=== PATIENT | female | born 1960 | race Caucasian/White ===

== ENCOUNTER 2017-02-28 13:34 | Outpatient (CLI) | payer MEDICAID | END 2017-02-28 13:35 | disposition home or self-care (01) | DX: Z12.31 Encounter for screening mammogram for malignant neoplasm of breast (principal) ==

== ENCOUNTER 2017-09-24 08:00 | Outpatient (CLI) | payer MEDICAID ==
[2017-09-24 12:40] LABS: BASOPHILS % (AUTO) 0.7 %; EOSINOPHILS # (AUTO) 0.2 10^3/uL (0.0-0.7); EOSINOPHILS % (AUTO) 3.7 %; HCT - HEMATOCRIT 38.1 % (37.0-47.0); HGB - HEMOGLOBIN 13.1 g/dL (12.0-16.0); LYMPHOCYTES # (AUTO) 1.9 10^3/uL (1.5-3.5); LYMPHOCYTES % (AUTO) 31.8 %; MEAN CORPUSCULAR HEMOGLOBIN 32.1 pg (27.0-31.0); MEAN CORPUSCULAR HGB CONC 34.3 g/dL (32.0-36.0); MEAN CORPUSCULAR VOLUME 93.6 fL (81.0-99.0); MEAN PLATELET VOLUME 7.8 fL (7.9-10.8); MONOCYTES # (AUTO) 0.4 10^3/uL (0.0-1.0); MONOCYTES % (AUTO) 7.2 %; NEUTROPHILS # (AUTO) 3.4 10^3/uL (1.5-6.6); NEUTROPHILS % (AUTO) 56.6 %; RED BLOOD COUNT 4.07 10^6/uL (4.20-5.40); RED CELL DISTRIBUTION WIDTH 13.5 % (12.0-15.0)
[2017-09-24 12:57] LABS: ALBUMIN/GLOBULIN RATIO 1.1 (1.0-2.2); BILIRUBIN,TOTAL 0.5 mg/dL (0.2-1.0); BUN - BLOOD UREA NITROGEN 12 mg/dL (6-20); CALCIUM 8.9 mg/dL (8.5-10.3); CARBON DIOXIDE - CO2 28 mmol/L (21-32); CHLORIDE 102 mmol/L (101-111); CHOL/HDL RATIO 3.3 (<4.4); CHOLESTEROL 229 mg/dL; CREATININE 0.8 mg/dL (0.4-1.0); GFR - MDRD 74 (>89); GLUCOSE 114 mg/dL (70-100); HDL CHOLESTEROL 69 mg/dL; POTASSIUM 4.1 mmol/L (3.5-5.0); SODIUM 137 mmol/L (135-145); TOTAL PROTEIN 7.5 g/dL (6.7-8.2); TRIGLYCERIDES 113 mg/dL; VLDL CHOLESTEROL 23 mg/dL
== END 2017-09-24 08:01 | disposition home or self-care (01) ==
LOC: LAB.WCP 08:00
PROVIDERS: ATTEND Family Medicine
DX: Z00.00 Encounter for general adult medical examination without abnormal findings (principal); Z51.81 Encounter for therapeutic drug level monitoring; Z79.899 Other long term (current) drug therapy
CPT/HCPCS: 36415; 80053; 80061; 84443; 85025

== ENCOUNTER 2018-02-26 16:14 | Outpatient (CLI) | payer MEDICAID ==
--- NOTE | 2018-02-28 17:26 | Mammography Report ---
DIGITAL SCREENING MAMMOGRAM: 02/26/2018 CLINICAL INDICATION: A 57-year-old with history of benign right breast biopsy for screening. COMPARISON: 02/2017, 02/2016, 12/2014, 11/2013, 05/2012, 02/2011, 12/2009. TECHNIQUE: Routine CC and MLO projections were obtained of the breasts. FINDINGS: The breasts again demonstrate scattered fibroglandular densities bilaterally. Postbiopsy changes in the right upper outer quadrant are stable. A few punctate, typically benign calcifications are present. No suspicious masses, clustered microcalcifications, or regions of architectural distortion are identified. IMPRESSION: BENIGN FINDINGS. RECOMMENDATION: Routine annual screening unless otherwise clinically indicated. BIRADS category 2 benign findings. STANDARD QUALIFYING STATEMENTS 1. This examination was reviewed with the aid of Computed-Aided Detection (CAD). 2. A negative or benign imaging report should not delay biopsy if clinically suspicious findings are present. Consider surgical consultation if warranted. More than 5% of cancers are not identified by imaging. 3. Dense breasts may obscure an underlying neoplasm. TD: 02/28/2018 17:25
== END 2018-02-26 16:15 | disposition home or self-care (01) ==
LOC: DI.N 16:14
PROVIDERS: ATTEND Family Medicine
DX: Z12.31 Encounter for screening mammogram for malignant neoplasm of breast (principal)
CPT/HCPCS: 77067

== ENCOUNTER 2018-03-25 08:00 | Outpatient (CLI) | payer MEDICAID ==
[2018-03-25 19:31] LABS: ALBUMIN 3.8 g/dL (3.2-5.5); ALBUMIN/GLOBULIN RATIO 1.1 (1.0-2.2); BILIRUBIN,TOTAL 0.3 mg/dL (0.2-1.0); CALCIUM 9.3 mg/dL (8.5-10.3); CREATININE 0.8 mg/dL (0.4-1.0); TOTAL PROTEIN 7.4 g/dL (6.7-8.2)
[2018-03-25 20:16] LABS: HB2 TOTAL 13.7 g/dL; HEMOGLOBIN A1C 0.57 g/dL
== END 2018-03-25 08:01 ==
LOC: LAB.WCP 08:00
PROVIDERS: ATTEND Family Medicine
DX: R73.01 Impaired fasting glucose (principal)
CPT/HCPCS: 36415; 80053; 83036

== ENCOUNTER 2018-10-06 18:39 | Outpatient (CLI) | payer MEDICAID ==
--- NOTE | 2018-10-07 09:13 | XRAY Report ---
Reason: KNEE PAIN, RIGHT Procedure Date: 10/06/2018 Accession Number: [id number] / [id number] Procedure: XR - Knee 3 View RT CPT Code: FULL RESULT: EXAM: RIGHT KNEE RADIOGRAPHY EXAM DATE: 10/06/2018 06:56 PM. CLINICAL HISTORY: KNEE PAIN, RIGHT. COMPARISON: None. TECHNIQUE: 3 views. FINDINGS: Bones: Normal. No fractures or bone lesions. Joints: Mild medial and lateral and minimal patellofemoral compartment marginal spurring. Substantial joint space narrowing is not demonstrated. No subluxation. Small joint effusion. Soft Tissues: Normal. No soft tissue swelling. IMPRESSION: 1. Mild degenerative disease. 2. Small joint effusion. RADIA
== END 2018-10-06 18:40 | disposition home or self-care (01) ==
LOC: DI 18:39
PROVIDERS: ATTEND Family Medicine
DX: M17.11 Unilateral primary osteoarthritis, right knee (principal); M25.461 Effusion, right knee

== ENCOUNTER 2019-08-19 13:30 | Outpatient (CLI) | payer MEDICAID ==
--- NOTE | 2019-08-19 14:19 | XRAY Report ---
Reason: UNSPECIFIED FALL Procedure Date: 08/19/2019 Accession Number: [id number] / [id number] Procedure: WCP - Ribs 2 View RT CPT Code: FULL RESULT: EXAM: RIGHT RIB RADIOGRAPHY EXAM DATE: 08/19/2019 01:52 PM. CLINICAL HISTORY: UNSPECIFIED FALL. COMPARISON: None. TECHNIQUE: 2 views. FINDINGS: Bones: Normal. No fracture or bone lesion. Lungs: No focal opacities evident. No pneumothorax or pleural effusions. Mediastinum: Heart and cardiomediastinal contours are unremarkable. Other: None. IMPRESSION: No displaced rib fracture is identified. RADIA
== END 2019-08-19 23:59 | disposition home or self-care (01) ==
LOC: DI.WCP 13:30
PROVIDERS: ATTEND Nurse Practitioner Gerontology
DX: R07.81 Pleurodynia (principal)

== ENCOUNTER 2019-09-11 13:33 | Outpatient (CLI) | payer MEDICAID ==
--- NOTE | 2019-09-14 08:43 | Mammography Report ---
Reason: ROUTINE MAMMO Procedure Date: 09/11/2019 Accession Number: [id number] / [id number] Procedure: MGN - Screening Mammo Dig Bilat CPT Code: Final Report FULL RESULT: EXAM: Screening Mammo Dig Bilat DATE: 09/11/2019 1:58 PM CLINICAL HISTORY: Routine screening. No reported personal or family history of breast cancer. History of benign right breast biopsy. TECHNIQUE: (B) - Bilateral CC and MLO views were obtained. COMPARISON: 02/26/2018 through 12/15/2009. PARENCHYMAL PATTERN: (A) - The breasts demonstrate scattered fibroglandular densities bilaterally. FINDINGS: Bilateral breasts: There are no suspicious masses, calcifications, or areas of distortion. IMPRESSION: Negative examination. BI-RADS category 1. RECOMMENDATION: (ANNUAL) - Recommend routine annual screening mammography. BI-RADS CATEGORY: (1) - Negative. STANDARD QUALIFYING STATEMENTS: 1. This examination was not reviewed with the aid of Computer-Aided Detection (CAD). 2. A negative or benign imaging report should not preclude biopsy if clinically suspicious findings are present. 3. Dense breasts may obscure an underlying neoplasm. 4. This examination was reviewed without the aid of 3D breast imaging (tomosynthesis).
== END 2019-09-11 13:34 | disposition home or self-care (01) ==
LOC: DI.N 13:33
DX: Z12.31 Encounter for screening mammogram for malignant neoplasm of breast (principal)
CPT/HCPCS: 77067

== ENCOUNTER 2019-10-27 21:59 | Emergency (ER) | payer MEDICAID ==
[2019-10-27 22:06] VITALS: BP 179/94
[2019-10-27] MEDS ORDERED: AMOX/CLAV 875 MG/125 MG TABLET PO STA (22:38)
[2019-10-27] MEDS ORDERED: predniSONE 20 MG TABLET PO STA (22:38)
--- NOTE | 2019-10-27 22:44 | ED Physician Documentation ---
PD HPI HEENT - Stated complaint Stated Complaint: CONGESTION,LEFT EAR PX - Chief complaint Chief Complaint: Heent - History obtained from History obtained from: Patient - History of Present Illness Timing - onset: Other (Sick for 4 weeks with a double sickening with now a severe right sinus pain and tooth pain radiating to the right ear and worse if she bends forward. Chills tonight without fevers.) Review of Systems Constitutional: reports: Chills. denies: Fever Nose: reports: Rhinorrhea / runny nose, Congestion, Sinus pressure / pain Throat: denies: Sore throat Respiratory: denies: Dyspnea, Cough PD PAST MEDICAL HISTORY - Past Medical History Past Medical History: Yes Cardiovascular: None Respiratory: None Neuro: None Endocrine/Autoimmune: None GI: None MOBILE PHONE SALESPERSON: None : None HEENT: None Psych: Depression Musculoskeletal: Osteoarthritis Derm: None - Past Surgical History Past Surgical History: Yes General: Other - Present Medications Home Medications: Ambulatory Orders Medication Instructions Recorded Confirmed Bupropion HCl [Bupropion Xl] 150 mg PO DAILY 12/17/13 01/09/16 FLUoxetine [PROzac] 10 mg PO DAILY 12/17/13 01/09/16 Loratadine [Claritin] 10 mg PO DAILY 01/09/16 01/09/16 Minocycline HCl [Minocin] 50 mg PO DAILY 01/09/16 01/09/16 Valacyclovir HCl [Valtrex] 500 mg PO DAILY 01/09/16 01/09/16 Amox/Clav 875/125 [Augmentin] 1 each PO Q12H #20 tablet 10/27/19 Guaifenesin/Pseudoephedrne HCl 1 each PO BID PRN #20 tab.er.12h 10/27/19 [Mucinex D ER 600-60 mg Tablet] Mometasone Furoate [Nasonex] 1 spray NS BID #1 spray.pump 10/27/19 - Allergies Allergies/Adverse Reactions: Allergies Allergy/AdvReac Type Severity Reaction Status Date / Time No Known Drug Allergies Allergy Verified 10/27/19 22:02 - Social History Does the pt smoke?: No Smoking Status: Never smoker Does the pt drink ETOH?: No Does the pt have substance abuse?: No - Immunizations Immunizations are current?: Yes - POLST Patient has POLST: No PD ED PE NORMAL - Vitals Vital signs reviewed: Yes - General General: Alert and oriented X 3, No acute distress - HEENT HEENT: Other (Tender over the left maxillary sinus, TMs are normal, oropharynx is normal.) - Neck Neck: Supple, no meningeal sign, No bony TTP - Neuro Neuro: Alert and oriented X 3, Normal speech Results - Vitals Vitals: Vital Signs - 24 hr 10/27/19 10/27/19 22:02 22:29 Temperature 36.8 C Heart Rate 95 Respiratory 16 17 Rate Blood Pressure 179/94 H O2 Saturation 98 Oxygen O2 Source Room air PD MEDICAL DECISION MAKING - ED course ED course: Given the time course, severe pain, chills and double sickening she does fit IDSA criteria for antibiotic treatment for sinusitis. Departure - Departure Disposition: Home, Self Care Clinical Impression: Sinusitis Qualifiers: Sinusitis location: maxillary Chronicity: acute Recurrence: non-recurrent Qualified Code(s): J01.00 - Acute maxillary sinusitis, unspecified Condition: Good Record reviewed to determine appropriate education?: Yes Instructions: ED Sinusitis Abx Tx Prescriptions: Amox/Clav 875/125 [Augmentin] 1 each PO Q12H #20 tablet Guaifenesin/Pseudoephedrne HCl [Mucinex D ER 600-60 mg Tablet] 1 each PO BID PRN #20 tab.er.12h PRN Reason: congestion Mometasone Furoate [Nasonex] 1 spray NS BID #1 spray.pump Comments: Call your doctor to arrange a follow-up appointment, make the next available appointment. In the interim, return anytime if worse or if new symptoms develop.
== END 2019-10-27 22:50 | disposition home or self-care (01) ==
LOC: ED 21:59
DX: J01.00 Acute maxillary sinusitis, unspecified (principal)
CPT/HCPCS: 99283; A9270; J7512

== ENCOUNTER 2020-11-28 15:33 | Outpatient (CLI) | payer MEDICAID ==
--- NOTE | 2020-11-29 09:44 | Mammography Report ---
BILATERAL DIGITAL SCREENING MAMMOGRAM 3D/2D: 11/28/2020 CLINICAL: Routine screening. Comparison is made to exams dated: 09/11/2019 mammogram, 02/26/2018 mammogram, 02/28/2017 mammogram, mammogram, 12/14/2014 mammogram, and 11/18/2013 mammogram - [facility]. The tissue of both breasts is heterogeneously dense. This may lower the sensitivity of mammography. No significant masses, calcifications, or other findings are seen in either breast. There has been no significant interval change. IMPRESSION: NEGATIVE There is no mammographic evidence of malignancy. A 1 year screening mammogram is recommended. This exam was interpreted at Station ID: [id number]. NOTE: For mammograms, a report in lay terms will be sent to the patient. Approximately 15% of breast malignancies will not be visualized mammographically. In the management of a palpable breast mass, a negative mammogram must not discourage biopsy of a clinically suspicious lesion. Electronically Signed By: Joseph Moore M.D. ddp/penrad:11/28/2020 16:37:35 ACR BI-RADS Category 1: Negative 3341F PARENCHYMAL PATTERN: (D) - The breast(s) demonstrate(s) heterogeneously dense fibroglandular sara cortes. BI-RADS CATEGORY: (1) - 1 RECOMMENDATION: (ANNUAL) - Recommend routine annual screening mammography. [id number] 1 year screening LATERALITY: (B)
== END 2020-11-28 15:34 | disposition home or self-care (01) ==
LOC: DI.N 15:33
DX: Z12.31 Encounter for screening mammogram for malignant neoplasm of breast (principal)

== ENCOUNTER 2020-12-05 16:41 | Outpatient (CLI) | payer MEDICAID ==
--- NOTE | 2020-12-05 18:45 | XRAY Report ---
PROCEDURE: Hand 2 View LT INDICATIONS: SUBCUTANEOUS NODULE OF FINGER, LEFT TECHNIQUE: 3 views of the hand(s) acquired. COMPARISON: None FINDINGS: Bones: No fractures or dislocations. Severe osteoarthritic changes involving fifth DIP joint with fe atures suggestive of erosive osteoarthritis. No suspicious bony lesions. Soft tissues: No suspicious soft tissue calcifications. Soft tissue swelling surrounding fifth DIP joint is seen. IMPRESSION: Focal severe fifth DIP joint osteoarthritic changes with features suggestive of erosive osteoarthriti s and surrounding soft tissue swelling. No fracture or dislocation. Reviewed by: Wilson Adkins MD on 12/05/2020 5:43 PM [facility] Approved by: Wilson Adkins MD on 12/05/2020 5:43 PM [place] Station ID: [id number]
--- NOTE | 2020-12-05 18:45 | XRAY Report ---
PROCEDURE: Knee 3 View LT INDICATIONS: KNEE PAIN, LEFT TECHNIQUE: 3 views of the left knee(s) were acquired. COMPARISON: None. FINDINGS: Bones: No fractures or dislocations. Mild tricompartmental osteoarthritis is seen more prominent in medial femoral tibial compartment. No suspicious bony lesions. Soft tissues: Small to moderate suprapatellar joint effusion is seen. No suspicious soft tissue calc ifications. IMPRESSION: Mild tricompartmental osteoarthritis more prominent in medial femoral tibial compartment. Small to moderate suprapatellar joint effusion. No fracture or dislocation. Reviewed by: Wilson Adkins MD on 12/05/2020 5:44 PM [place] Approved by: Wilson Adkins MD on 12/05/2020 5:44 PM [place] Station ID: [id number]
--- NOTE | 2020-12-05 18:47 | XRAY Report ---
PROCEDURE: Lumbar Spine 2 View INDICATIONS: LOW BACK PAIN TECHNIQUE: 3 views of the lumbar spine were acquired. COMPARISON: None. FINDINGS: Bones: 5 swo-dky-[id number] vertebrae are present. There is normal bony alignment. Degenerative endpla te changes are noted at L4-5 and L5-S1 levels. Bilateral facet arthrosis at L3-4 through L5-S1 levels are also seen. No vertebral body compression fractures. No suspicious bony lesions. Soft tissues: Overlying bowel gas pattern is normal. No suspicious soft tissue calcifications. 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 No acute compression fracture or spondylolisthesis. Reviewed by: Wilson Adkins MD on 12/05/2020 5:45 PM [facility] Approved by: Wilson Adkins MD on 12/05/2020 5:45 PM [facility] Station ID: [id number]
== END 2020-12-05 16:42 | disposition home or self-care (01) ==
LOC: DI 16:41
PROVIDERS: ATTEND Family Medicine
DX: M47.816 Spondylosis without myelopathy or radiculopathy, lumbar region (principal); M51.36 Other intervertebral disc degeneration, lumbar region; M47.817 Spondylosis without myelopathy or radiculopathy, lumbosacral region; M51.37 Other intervertebral disc degeneration, lumbosacral region; M19.042 Primary osteoarthritis, left hand; M17.12 Unilateral primary osteoarthritis, left knee; M25.462 Effusion, left knee

== ENCOUNTER 2021-11-13 08:42 | Outpatient (CLI) | payer BC ==
[2021-11-13 09:27] LABS: ALBUMIN/GLOBULIN RATIO 1.2 (1.0-2.2); ALKALINE PHOSPHATASE 73 IU/L (42-121); ALT ALANINE AMINOTRANSFERASE 18 IU/L (10-60); AST ASPARTATE AMINOTRANSFERASE 16 IU/L (10-42); BILIRUBIN,TOTAL 0.5 mg/dL (0.2-1.0); BUN - BLOOD UREA NITROGEN 13 mg/dL (6-20); CALCIUM 9.5 mg/dL (8.5-10.3); CARBON DIOXIDE - CO2 29 mmol/L (21-32); CHLORIDE 102 mmol/L (101-111); CHOLESTEROL 268 mg/dL; CREATININE 0.8 mg/dL (0.4-1.0); GFR - MDRD 73 (>89); GLUCOSE 121 mg/dL (70-100); HDL CHOLESTEROL 90 mg/dL; LDL CHOLESTEROL,CALCULATED 164 mg/dL; LDL/HDL RATIO 1.8 (<4.4); POTASSIUM 4.3 mmol/L (3.5-5.0); SODIUM 140 mmol/L (135-145); TOTAL PROTEIN 7.4 g/dL (6.7-8.2); TRIGLYCERIDES 71 mg/dL; VLDL CHOLESTEROL 14 mg/dL
[2021-11-13 09:40] LABS: THYROID STIMULATING HORMONE 2.88 uIU/mL (0.34-5.60)
== END 2021-11-13 08:43 | disposition home or self-care (01) ==
LOC: LAB 08:42
PROVIDERS: ATTEND Family Medicine
DX: Z00.00 Encounter for general adult medical examination without abnormal findings (principal); R00.0 Tachycardia, unspecified
CPT/HCPCS: 36415; 80053; 80061; 83721; 84443

== ENCOUNTER 2021-11-15 09:43 | Outpatient (CLI) | payer BC ==
[2021-11-15 09:56] LABS: BASOPHILS # (AUTO) 0.1 10^3/uL (0.0-0.1); BASOPHILS % (AUTO) 0.7 %; EOSINOPHILS # (AUTO) 0.4 10^3/uL (0.0-0.7); EOSINOPHILS % (AUTO) 5.2 %; HCT - HEMATOCRIT 39.1 % (37.0-47.0); HGB - HEMOGLOBIN 13.2 g/dL (12.0-16.0); LYMPHOCYTES # (AUTO) 2.4 10^3/uL (1.5-3.5); LYMPHOCYTES % (AUTO) 34.5 %; MEAN CORPUSCULAR HEMOGLOBIN 32.7 pg (27.0-31.0); MEAN CORPUSCULAR HGB CONC 33.8 g/dL (32.0-36.0); MEAN CORPUSCULAR VOLUME 96.8 fL (81.0-99.0); MEAN PLATELET VOLUME 8.7 fL (7.9-10.8); MONOCYTES # (AUTO) 0.6 10^3/uL (0.0-1.0); MONOCYTES % (AUTO) 8.1 %; NEUTROPHILS # (AUTO) 3.6 10^3/uL (1.5-6.6); NEUTROPHILS % (AUTO) 51.2 %; PLT - PLATELET COUNT 303 10^3/uL (130-450); RED BLOOD COUNT 4.04 10^6/uL (4.20-5.40); RED CELL DISTRIBUTION WIDTH 13.1 % (12.0-15.0); WHITE BLOOD COUNT 7.1 x10^3/uL (4.8-10.8)
== END 2021-11-15 09:44 | disposition home or self-care (01) ==
LOC: LAB 09:43
PROVIDERS: ATTEND Family Medicine
DX: Z00.00 Encounter for general adult medical examination without abnormal findings (principal)
CPT/HCPCS: 36415; 85025

== ENCOUNTER 2021-11-22 08:25 | Outpatient (CLI) | payer BC, MEDICAID ==
--- NOTE | 2021-11-29 06:09 | Mammography Report ---
BILATERAL DIGITAL SCREENING MAMMOGRAM 3D/2D: 11/22/2021 CLINICAL: Routine screening. Comparison is made to exams dated: 11/28/2020 mammogram, 09/11/2019 mammogram, 02/26/2018 mammogram, mammogram, and 03/02/2016 mammogram - [facility]. There are scattered fibro glandular elements in both breasts. No significant masses, calcifications, or other findings are seen in either breast. There has been no significant interval change. IMPRESSION: NEGATIVE There is no mammographic evidence of malignancy. A 1 year screening mammogram is recommended. This exam was interpreted at Station ID: [id number]. NOTE: For mammograms, a report in lay terms will be sent to the patient. Approximately 15% of breast malignancies will not be visualized mammographically. In the management of a palpable breast mass, a negative mammogram must not discourage biopsy of a clinically suspicious lesion. Electronically Signed By: Victor M Kwan M.D. [facility]/penrad:11/28/2021 17:08:31 ACR BI-RADS Category 1: Negative 3341F PARENCHYMAL PATTERN: (A) - The breast(s) demonstrate(s) scattered fibroglandular densities. BI-RADS CATEGORY: (1) - 1 RECOMMENDATION: (ANNUAL) - Recommend routine annual screening mammography. [id number] 1 year screening LATERALITY: (B)
== END 2021-11-22 08:26 | disposition home or self-care (01) ==
LOC: DI.N 08:25
DX: Z12.31 Encounter for screening mammogram for malignant neoplasm of breast (principal)

== ENCOUNTER 2022-05-22 17:20 | Outpatient (CLI) | payer MEDICAID ==
--- NOTE | 2022-05-23 10:07 | XRAY Report ---
PROCEDURE: Shoulder 3 View RT INDICATIONS: SHOULDER IMPINGEMENT SYNDROME, RIGHT TECHNIQUE: Views of the location were acquired. COMPARISON: None. FINDINGS: Bones: No fractures or dislocations. No suspicious bony lesions. Mild degenerative changes of the acromioclavicular joint. Soft tissues: No suspicious soft tissue calcifications. IMPRESSION: Mild degenerative changes of the acromioclavicular joint, otherwise normal right shouldgretta rKaren Reviewed by: Austyn Liang on 05/23/2022 10:06 AM PDT Approved by: Austyn Liang on 05/23/2022 10:06 AM PDT Station ID: [id number]
== END 2022-05-22 17:21 | disposition home or self-care (01) ==
LOC: DI.N 17:20
PROVIDERS: ATTEND Nurse Practitioner Family
DX: M19.011 Primary osteoarthritis, right shoulder (principal)

== ENCOUNTER 2022-07-11 08:00 | Outpatient (CLI) | payer MEDICAID ==
[2022-07-11 12:31] LABS: ALBUMIN 4.2 g/dL (3.2-5.5); ALBUMIN/GLOBULIN RATIO 1.3 (1.0-2.2); BILIRUBIN,TOTAL 0.4 mg/dL (0.2-1.0); CALCIUM 9.2 mg/dL (8.5-10.3); CREATININE 0.7 mg/dL (0.4-1.0); POTASSIUM 3.9 mmol/L (3.5-5.0); TOTAL PROTEIN 7.4 g/dL (6.7-8.2)
== END 2022-07-11 23:58 | disposition home or self-care (01) ==
LOC: LAB 08:00
PROVIDERS: ATTEND Nurse Practitioner Family
DX: B35.1 Tinea unguium (principal)
CPT/HCPCS: 36415; 80053

== ENCOUNTER 2022-08-21 17:09 | Outpatient (CLI) | payer BC, MEDICAID ==
[2022-08-21 17:54] LABS: ALBUMIN/GLOBULIN RATIO 1.2 (1.0-2.2); BILIRUBIN,TOTAL 0.3 mg/dL (0.2-1.0); CREATININE 0.7 mg/dL (0.4-1.0); POTASSIUM 3.9 mmol/L (3.5-5.0); TOTAL PROTEIN 7.4 g/dL (6.7-8.2)
== END 2022-08-21 17:10 | disposition home or self-care (01) ==
LOC: LAB 17:09
PROVIDERS: ATTEND Nurse Practitioner Family
DX: B35.1 Tinea unguium (principal); Z79.899 Other long term (current) drug therapy; Z91.89 Other specified personal risk factors, not elsewhere classified
CPT/HCPCS: 36415; 80053

== ENCOUNTER 2022-10-03 08:16 | Outpatient (CLI) | payer BC, MEDICAID ==
[2022-10-03 08:31] LABS: BASOPHILS % (AUTO) 0.4 %; EOSINOPHILS # (AUTO) 0.1 10^3/uL (0.0-0.7); EOSINOPHILS % (AUTO) 2.3 %; HCT - HEMATOCRIT 38.3 % (37.0-47.0); HGB - HEMOGLOBIN 12.8 g/dL (12.0-16.0); LYMPHOCYTES # (AUTO) 2.1 10^3/uL (1.5-3.5); LYMPHOCYTES % (AUTO) 40.7 %; MEAN CORPUSCULAR HEMOGLOBIN 31.7 pg (27.0-31.0); MEAN CORPUSCULAR HGB CONC 33.4 g/dL (32.0-36.0); MEAN CORPUSCULAR VOLUME 94.8 fL (81.0-99.0); MEAN PLATELET VOLUME 8.9 fL (7.9-10.8); MONOCYTES # (AUTO) 0.4 10^3/uL (0.0-1.0); MONOCYTES % (AUTO) 7.2 %; NEUTROPHILS # (AUTO) 2.5 10^3/uL (1.5-6.6); NEUTROPHILS % (AUTO) 49.4 %; PLT - PLATELET COUNT 298 10^3/uL (130-450); RED BLOOD COUNT 4.04 10^6/uL (4.20-5.40); WHITE BLOOD COUNT 5.1 x10^3/uL (4.8-10.8)
[2022-10-03 08:48] LABS: ALBUMIN/GLOBULIN RATIO 1.1 (1.0-2.2); ALKALINE PHOSPHATASE 76 IU/L (42-121); ALT ALANINE AMINOTRANSFERASE 18 IU/L (10-60); AST ASPARTATE AMINOTRANSFERASE 19 IU/L (10-42); BILIRUBIN,TOTAL 0.6 mg/dL (0.2-1.0); BUN - BLOOD UREA NITROGEN 13 mg/dL (6-20); CALCIUM 9.2 mg/dL (8.5-10.3); CARBON DIOXIDE - CO2 28 mmol/L (21-32); CHLORIDE 100 mmol/L (101-111); CHOL/HDL RATIO 2.9 (<4.4); CHOLESTEROL 262 mg/dL; CREATININE 0.7 mg/dL (0.4-1.0); GFR - MDRD 85 (>89); GLUCOSE 116 mg/dL (70-100); HDL CHOLESTEROL 90 mg/dL; LDL CHOLESTEROL,CALCULATED 153 mg/dL; LDL/HDL RATIO 1.7 (<4.4); POTASSIUM 4.2 mmol/L (3.5-5.0); SODIUM 137 mmol/L (135-145); TOTAL PROTEIN 7.5 g/dL (6.7-8.2); TRIGLYCERIDES 96 mg/dL; VLDL CHOLESTEROL 19 mg/dL
[2022-10-03 11:56] LABS: ESTIMATED AVERAGE GLUCOSE 120 mg/dL (70-100); HEMOGLOBIN A1c% 5.8 % (4.27-6.07)
[2022-10-03 21:07] LABS: THYROID STIMULATING HORMONE 2.64 uIU/mL (0.34-5.60)
== END 2022-10-03 08:17 | disposition home or self-care (01) ==
LOC: LAB 08:16
PROVIDERS: ATTEND Nurse Practitioner Family
DX: Z00.00 Encounter for general adult medical examination without abnormal findings (principal)
CPT/HCPCS: 36415; 80053; 80061; 83036; 83721; 84443; 85025

== ENCOUNTER 2022-11-23 15:17 | Outpatient (CLI) | payer BC, MEDICAID ==
--- NOTE | 2022-11-23 17:00 | DEXA Report ---
PROCEDURE: Dexa Spine and/or Hip INDICATIONS: POSTMENOPAUSAL TECHNIQUE: Dual energy x-ray absorptiometry (DXA) was performed on a [employer] System. Regions measur ed are the AP Spine, femoral neck, and if needed forearm. COMPARISON: None. FINDINGS: Lumbar Spine: Bone Mineral Density 1.4 g/cm/cm,T score 1.5, normal bone density Left Femoral Neck: Bone Mineral Density 0.85 g/cm/cm, T score -1.3, osteopenia Impression: 1. Normal lumbar spine bone density. 2. Left hip osteopenia. Patients with diagnosis of osteoporosis or osteopenia should have regular bone mineral density assess ment. For those eligible for Medicare, routine testing is allowed once every 2 years. Testing frequ ency can be increased for patients who have rapidly progressing disease or for those who are receivin g medical therapy to restore bone mass. Reviewed by: Parris Mckoy MD on 11/23/2022 4:59 PM PST Approved by: Parris Mckoy MD on 11/23/2022 4:59 PM PST Station ID: [id number]
== END 2022-11-23 15:18 | disposition home or self-care (01) ==
LOC: DI 15:17
PROVIDERS: ATTEND Nurse Practitioner Family
DX: Z78.0 Asymptomatic menopausal state (principal); M85.88 Other specified disorders of bone density and structure, other site

== ENCOUNTER 2023-03-14 14:12 | Outpatient (CLI) | payer BC, MEDICAID ==
--- NOTE | 2023-03-15 09:50 | Mammography Report ---
BILATERAL DIGITAL SCREENING MAMMOGRAM 3D/2D: 03/14/2023 CLINICAL: Routine screening. Comparison is made to exams dated: 11/22/2021 mammogram, 11/28/2020 mammogram, 09/11/2019 mammogram, mammogram, 02/28/2017 mammogram, and 03/02/2016 mammogram - [facility]. There are scattered areas of fibroglandular density in both breasts (category b / 25%-50% glandular t issue). No significant masses, calcifications, or other findings are seen in either breast. There has been no significant interval change. IMPRESSION: NEGATIVE There is no mammographic evidence of malignancy. A 1 year screening mammogram is recommended. Based on the Tyrer Cuzick model (a risk assessment model) the patients lifetime risk is 6.0% and her 10 year risk is 2.7%. According to the ACR, ACS, and NCCN guidelines, an annual breast MRI exam vikki g with mammogram is recommended if the patients lifetime risk is 20% or greater. This exam was interpreted at Station ID: [id number]. NOTE: For mammograms, a report in lay terms will be sent to the patient. Approximately 15% of breast malignancies will not be visualized mammographically. In the management of a palpable breast mass, a negative mammogram must not discourage biopsy of a clinically suspicious lesion. Electronically Signed By: Jose capellan/tashi:03/14/2023 16:06:05 letter sent: No_Letter ACR BI-RADS Category 1: Negative 3341F PARENCHYMAL PATTERN: (A) - The breast(s) demonstrate(s) scattered fibroglandular densities. BI-RADS CATEGORY: (1) - 1 Mammogram [id number] 1 year screening LATERALITY: (B)
== END 2023-03-14 14:13 | disposition home or self-care (01) ==
LOC: DI 14:12
DX: Z12.31 Encounter for screening mammogram for malignant neoplasm of breast (principal)

== ENCOUNTER 2023-04-02 08:40 | Outpatient (CLI) | payer BC, MEDICAID ==
--- NOTE | 2023-04-02 09:40 | Sleep Patient Instructions ---
Sleep Center Visit Summary - Patient Visit Information Reason for Visit: Initial consult for evaluation of sleep disordered breathing and other sleep issues. - Patient Instructions Instructions Attached: Sleep Study, Sleep Study Home Monitor, Sleep Clinic Visit Additional Instructions: You will be completing a sleep study, either an in-lab polysomnography (PSG) or home sleep study (HST). You will follow-up in the sleep care office after the sleep study is completed to hear the results and talk about therapy, if needed. You will be called by our office staff to schedule this appointment, but you may contact us with any questions. - Clinic Information Contact: [facility] [address] [place] [address] [email or web address] T: [phone]
--- NOTE | 2023-04-02 09:44 | SLEEP CARE CONSULTATION ---
Information from patient questionnaire entered by Aylin Layton. I have reviewed and concur with the information entered by Aylin Layton. This document represents the service I personally performed and the decisions made by me, Amniah Bell ARNP. History of Present Illness Service Date and Time: 04/02/2023 0840 Reason for Visit: New patient Chief Complaint: reports: Unrefreshed sleep, Snoring, Excessive daytime sleepiness, Fatigue Date of Onset: OVER A YR Usual bedtime: 11-12PM Time it takes to fall asleep: MOSTLY NOT TO LONG Snores at night: Yes Observed to quit breathing while asleep: No Number of times waking at night: 0 Reasons for waking at night: denies: Choking, Gasping for air Toss, Turn, or Twitch while sleeping: Yes Recalls having dreams: Yes Usually gets out of bed at: 6AM; weekends 0800 Feels refreshed in the morning: No Morning headache: No Sleepy or fatigued during the day: Yes Ever fallen asleep while driving: No (only on long trips) Takes day naps: Yes (1-2 on weekends) Dreams during day naps: Yes Prior sleep studies: No Additional HPI information: I had the pleasure of seeing ANDRY BAE today regarding the possibility of her having a sleep disorder. Her current complaints are unrefreshed sleep, snoring, excessive daytime sleepiness and fatigue. She states she is always tired. She has been told that she snores loudly. She has woke herself up snoring. She can sleep 9-10 hours and still wakes up tired. She has been reducing sugars and carbs but is unable to lose weight. She has gained 50 pounds since menopause. - Parasomnia Symptoms Ever been unable to move upon waking from sleep: No Walks in sleep: No Talks in sleep: Yes (occasionally) Ever acted out dreams in sleep: Yes (rarely) Ever felt weak in the knees when startled or emotional: No Bothered by creepy, crawly, restless sensations in legs: No Problems with memory or concentration: No Subjective Initial Dickinson Sleepiness Scale score: 6 (03/29/23) Past Medical History Past Medical History: reports: Arthritis, Depression Social History The patient's occupation is a [employer]. Patient is and lives in . Have you smoked in the past 12 months: No Years of smokin Quit date: 2007 Alcohol use: Yes Alcohol amount and frequency: 1 drink daily Caffeine use: Yes Caffeine amount and frequency: 2 CUPS DAILY Family History Family history of sleep disordered breathing: Yes Family Hx Sleep Apnea: Father: Snoring, Grandparent: Snoring Allergies and Home Medications Known drug allergies: No Drug allergies reviewed: Yes Home medication list reviewed: Yes Allergy and home medication list: Allergies No Known Drug Allergies Allergy (Verified 03/29/23 13:59) Medications: Fluoxetine 10 mg Bupropion ER SR 150 mg Valacyclovir 500 mg Omeprazole 40 mg Retin-A Multi-vitamin 50+ Vitamin B12 5000 mcg Vitamin C w/ tiffany hips 1000 mg Vitamin E 180 mg Biotin 10,000 mcg Calcium Citrate 630 mg/Vitamin D3 12.5 mcg Folate 1333 mcg Fluticasone 2 sprays 2 times a day Inhaler Review of Systems Weight gain over past 5 years: 50-60 Cardiovascular: reports: high blood pressure Respiratory: reports: chronic cough Gastrointestinal: denies: heartburn Urinary: reports: incontinence Neurological: denies: headaches Psychiatric: reports: depression. denies: Attention Deficit Hyperactivity Ear/Nose/Throat: reports: wisdom teeth removed. denies: tonsillectomy Endocrine: reports: sluggishness. denies: thyroid disease Musculoskeletal: reports: back pain Immunologic: reports: allergies to food or environment Physical Exam Vital signs obtained and entered by: AYLIN Connolly MA Blood Pressure: 136/80 (LEFT ARM) Cuff size: long Heart Rate: 106 O2 Saturation: 98 Height: 5 ft 6 in Weight: 220 lb 3.2 oz Body Mass Index: 35.5 BMI Classification: Obese Neck circumference: 16 Mouth and throat: narrow oropharynx Soft palate: long Hard palate: Torus palatinus Uvula: normal Uvula visualization: 0% Mallampati Class IV Tongue: enlarged in size with teeth elizabeth on lateral edges Tonsils: small Neck: normal w/o lymphadenopathy or thyromegaly Heart: regular rate and rhythm Lungs: clear bilaterally Impression and Plan 1. Suspected Obstructive Sleep Apnea-Hypopnea Syndrome, as suggested by a history of loud and irregular snoring, unrefreshed sleep, and excessive daytime sleepiness. Narrow oropharynx and obesity are common predisposing factors for obstructive sleep apnea-hypopnea syndrome. I recommend proceeding to polysomnography to confirm the diagnosis and to assess severity. If the patient has significant sleep disordered breathing, a manual CPAP titration study will also be performed to find the optimal treatment pressure. I informed the patient of what the sleep studies involve and after some discussion, obtained agreement to proceed. The pathophysiology of obstructive sleep apnea-hypopnea syndrome was discussed with the patient and health risks of cardiovascular and cerebrovascular disease if not treated. Risks of drowsy driving discussed in detail and patient advised to avoid long distance driving and to pick pulling machine tender at the first sign of drowsiness. Patient agreed to plan. * Schedule polysomnography +- manual CPAP titration study and return in 1-2 weeks after the study to discuss result and initiate therapy. * Avoid long distance driving or driving when feeling sleepy. * Avoid alcohol, sedative and muscle relaxant around bedtime. * Attempt to lose weight. * Review instructions provided by trained office staff on how to prepare for the sleep study. * Return for follow-up after sleep study completed. Counseling Topics: Weight loss health impact Visit Type: In Office Time Spent with Patient (minutes): 32 Provider Statement: I spent 100% of the Face to Face Visit with the patient with greater than 50% spent counseling the patient and coordination of care.
[2023-04-02 09:48] VITALS: BP 136/80
== END 2023-04-02 08:41 | disposition home or self-care (01) ==
LOC: SC 08:40
PROVIDERS: ATTEND Nurse Practitioner Family
DX: G47.10 Hypersomnia, unspecified (principal); R53.83 Other fatigue; R06.83 Snoring; G47.8 Other sleep disorders; E66.9 Obesity, unspecified; Z68.35 Body mass index [BMI] 35.0-35.9, adult; F32.A Depression, unspecified; Z87.891 Personal history of nicotine dependence
CPT/HCPCS: 99203; 99212

== ENCOUNTER 2023-04-05 08:15 | Outpatient (CLI) | payer BC, MEDICAID ==
[2023-04-05 09:37] LABS: ALBUMIN 3.9 g/dL (3.2-5.5); ALBUMIN/GLOBULIN RATIO 1.1 (1.0-2.2); ALKALINE PHOSPHATASE 85 IU/L (42-121); ALT ALANINE AMINOTRANSFERASE 20 IU/L (10-60); AST ASPARTATE AMINOTRANSFERASE 22 IU/L (10-42); BILIRUBIN,TOTAL 0.4 mg/dL (0.2-1.0); BUN - BLOOD UREA NITROGEN 12 mg/dL (6-20); CALCIUM 8.9 mg/dL (8.5-10.3); CARBON DIOXIDE - CO2 27 mmol/L (21-32); CHLORIDE 101 mmol/L (101-111); CHOLESTEROL 262 mg/dL; CREATININE 0.8 mg/dL (0.4-1.0); GFR - MDRD 72 (>89); GLUCOSE 97 mg/dL (70-100); HDL CHOLESTEROL 88 mg/dL; LDL CHOLESTEROL,CALCULATED 158 mg/dL; LDL/HDL RATIO 1.8 (<4.4); POTASSIUM 4.1 mmol/L (3.5-5.0); SODIUM 139 mmol/L (135-145); TOTAL PROTEIN 7.5 g/dL (6.7-8.2); TRIGLYCERIDES 79 mg/dL; VLDL CHOLESTEROL 16 mg/dL
[2023-04-05 10:12] LABS: ESTIMATED AVERAGE GLUCOSE 120 mg/dL (70-100); HEMOGLOBIN A1c% 5.8 % (4.27-6.07)
== END 2023-04-05 08:16 | disposition home or self-care (01) ==
LOC: LAB 08:15
PROVIDERS: ATTEND Nurse Practitioner Family
DX: E78.5 Hyperlipidemia, unspecified (principal); R73.03 Prediabetes
CPT/HCPCS: 36415; 80053; 80061; 83036; 83721

== ENCOUNTER 2023-05-23 08:25 | Outpatient (CLI) | payer BC, MEDICAID | END 2023-05-23 08:26 | disposition home or self-care (01) | LOC: SC 08:25 | PROVIDERS: ATTEND Nurse Practitioner Family | DX: G47.33 Obstructive sleep apnea (adult) (pediatric) (principal); R09.02 Hypoxemia; E66.9 Obesity, unspecified; Z68.35 Body mass index [BMI] 35.0-35.9, adult | CPT/HCPCS: 95806 ==

== ENCOUNTER 2023-06-05 12:06 | Outpatient (CLI) | payer BC, MEDICAID ==
--- NOTE | 2023-06-05 12:04 | SLEEP CARE CONSULTATION ---
Information from patient questionnaire entered by Charlene Donnelly. I have reviewed and concur with the information entered by Charlene Donnelly. This document represents the service I personally performed and the decisions made by , Aminah Bell ARNP. History of Present Illness Service Date and Time: 06/05/2023 1140 Initial [place] Sleepiness Scale score: 6 (03/29/23) Current [place] Sleepiness Scale score: 7 Additional HPI information: ANDRY BAE returns via video telehealth visit for follow up and results of the recently performed home sleep study. Sleep study showed mild obstructive sleep apnea with an average AHI of 10.9 and leslie oxygen saturation of 80%. I explained the pathophysiology behind obstructive sleep apnea. We then spent quite a bit of time discussing different treatment options. For mild obstructive sleep apnea, surgery and oral appliance are alternatives to nasal CPAP therapy but in moderate or severe cases, nasal CPAP is the most effective and reliable treatment. Because apnea is primarily in supine position, then positional management therapy could be effective. Methods discussed such as positioning with pillows, using a T-shirt with tennis balls in the back or commercial products that have a pillow format on back to prevent supine sleep. I reviewed the impact of weight changes on sleep apnea and strongly recommended losing weight. Patient counseled not drink alcohol less than 4 hours before bedtime as it can increase snoring and apnea. Patient was cautioned about risks of drowsy driving until sleepiness symptoms resolve. Patient denies drowsy driving unless driving long distance. Sleep Study - Results Type of Sleep Study: Home sleep study Prior sleep studies: No Polysomnography/Home Sleep Study results: Physician Impression: The quality of the study is good. The length of the study is adequate (> 240 minutes). Please also see the tabulated and graphic data. 1. Obstructive Sleep Apnea-Hypopnea (ICD-10 G47.33), mild, with an AHI of 10.9/hr and leslie SaO2 of 80%. During the study, the patient had 52 apneas (52 obstructive, 0 central, 0 mixed) and 29 hypopneas. The longest episode lasted 81.5 seconds. The respiratory events occurred more frequently during supine sleep (supine AHI was 16.5 and non-supine, 8.09). 2. Hypoxemia (ICD-10 R09.02), mild, with the lowest oxygen saturation of 80 % and 6.5 minutes with SaO2 under 90%. Baseline oxygen saturation was normal (Average oxygen saturation was 93%). Allergies and Home Medications Known drug allergies: No Drug allergies reviewed: Yes Home medication list reviewed: Yes (Rosuvastatin 5 mg daily) Allergy and home medication list: Allergies No Known Drug Allergies Allergy Review of Systems Review of systems same as previous: No (high cholesterol) Physical Exam Vital signs obtained and entered by: Aminah García NP Height: 5 ft 6 in Weight: 217 lb (per pt) Body Mass Index: 35.0 BMI Classification: Obese Impression and Plan 1. Obstructive Sleep Apnea-Hypopnea Syndrome, mild, with lowest oxygen saturation of 80%. Obviously this is the cause of the patients symptoms of unrefreshed sleep, and excessive daytime sleepiness. Positive pressure therapy could benefit depression. Patient chose an oral appliance to treat their apnea. A month follow up will be made once she has her oral appliance to see if appliance has reduced symptoms. If so, another polysomnography will be ordered with use of the oral appliance to check efficacy in reducing apnea. Until patient is able to use the oral appliance, positional therapy is advised to avoid supine sleep with pillow positioning or one of the commercial products because apnea is more severe supine. 2. Hypoxemia, mild, with a leslie oxygen saturation of 80% and 6.5 minutes spent under 90%. Her baseline oxygen saturation was normal with an average oxygen saturation of 93%. * Oral Appliance. * Attempt to lose weight. * Avoid alcohol consumption near bedtime. * Avoid supine sleep until using Oral appliance. * The patient is again cautioned about driving until sleepiness completely resolves. * Return one month after oral appliance obtained. I will assess response to therapy at that time. Counseling Topics: Sleeping position, Weight loss health impact Visit Type: Telehealth Video Video Type: [employer] Patient Location: Work Location of Provider: Office Patient agrees and consents to this telehealth visit type: Yes Patient agrees to have their insurance billed: Yes Time Spent with Patient (minutes): 28 Provider Statement: I spent 100% of the Telehealth Video Call with the patient with greater than 50% spent counseling the patient and coordination of care.
== END 2023-06-05 12:07 | disposition home or self-care (01) ==
LOC: SC 12:06
PROVIDERS: ATTEND Nurse Practitioner Family
DX: G47.33 Obstructive sleep apnea (adult) (pediatric) (principal); R09.02 Hypoxemia; E66.9 Obesity, unspecified; Z68.35 Body mass index [BMI] 35.0-35.9, adult

== ENCOUNTER 2023-07-15 08:23 | Outpatient (CLI) | payer BC ==
[2023-07-15 08:54] LABS: BUN - BLOOD UREA NITROGEN 10 mg/dL (6-20); CALCIUM 9.3 mg/dL (8.5-10.3); CARBON DIOXIDE - CO2 31 mmol/L (21-32); CHLORIDE 103 mmol/L (101-111); CHOL/HDL RATIO 2.6 (<4.4); CHOLESTEROL 188 mg/dL; CREATININE 0.8 mg/dL (0.6-1.3); GFR - MDRD 72 (>89); GLUCOSE 105 mg/dL (74-104); HDL CHOLESTEROL 73 mg/dL; LDL CHOLESTEROL,CALCULATED 95 mg/dL; LDL/HDL RATIO 1.3 (<4.4); POTASSIUM 4.2 mmol/L (3.5-4.5); SODIUM 139 mmol/L (135-145); TRIGLYCERIDES 100 mg/dL (48-352); VLDL CHOLESTEROL 20 mg/dL
[2023-07-15 09:07] LABS: THYROID STIMULATING HORMONE 2.17 uIU/mL (0.34-5.60)
[2023-07-15 09:33] LABS: ESTIMATED AVERAGE GLUCOSE 123 mg/dL (70-100); HEMOGLOBIN A1c% 5.9 % (4.27-6.07)
== END 2023-07-15 08:24 | disposition home or self-care (01) ==
LOC: LAB 08:23
PROVIDERS: ATTEND Nurse Practitioner Family
DX: R73.03 Prediabetes (principal); E66.9 Obesity, unspecified; E78.5 Hyperlipidemia, unspecified
CPT/HCPCS: 36415; 80048; 80061; 83036; 83721; 84436; 84439; 84443; 84481; 86800

== ENCOUNTER 2023-10-08 19:22 | Emergency (ER) | payer BC ==
[2023-10-08 19:34] VITALS: BP 150/93; O2SAT 97
--- NOTE | 2023-10-08 19:57 | ED Physician Documentation ---
History of Present Illness - Stated complaint Stated Complaint: LT LEG PX/SWELLING - Chief complaint Chief Complaint: Ext Problem - Additonal information Additional information: 63-year-old female presents emergency department for evaluation of persistent left knee and ankle pain as well as swelling after trauma. On she fell directly onto a ladder near her right knee. Initially she reports that she had some swelling and bruising in this area but did not think much of it the swelling and bruising around the knee is gotten better but since then she has developed some persistent edema of the lower leg and has some pain around the ankles. Swelling improves when she goes to bed overnight but worsens as the day goes on. No history of DVT. No hormone use. No recent surgery or immobilization. She was advised to come here for DVT rule out. 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 : None HEENT: None, Chronic hearing loss Psych: Depression Musculoskeletal: Osteoarthritis Derm: None - Past Surgical History Past Surgical History: Yes General: Other - Present Medications Home Medications: Ambulatory Orders Medication Instructions Recorded Confirmed Bupropion HCl [Bupropion Xl] 150 mg PO DAILY 12/17/13 04/02/23 FLUoxetine [PROzac] 10 mg PO DAILY 12/17/13 04/02/23 Valacyclovir HCl [Valtrex] 500 mg PO DAILY 01/09/16 04/02/23 Ascorbic Acid [Vitamin C] 1,000 mg PO DAILY 09/17/22 04/02/23 Biotin 10,000 mcg PO DAILY 09/17/22 04/02/23 Calcium 26/Vit D3/Magnesium 15 1 each PO DAILY 09/17/22 04/02/23 [Esumhjd-Ydp-Y5 Complx 167Mg Cp] Mecobalamin [B-12] 5,000 mcg PO DAILY 09/17/22 04/02/23 Multivitamin 1 each PO DAILY 09/17/22 04/02/23 Omeprazole Magnesium 20 mg PO DAILY 09/17/22 04/02/23 Tretinoin [Retin-A] 15 gm TP DAILY 09/17/22 04/02/23 Vitamin E (Dl,Tocopheryl Acet) 180 mg PO DAILY 09/17/22 04/02/23 [Vitamin E] Folic Acid See Rx Instructions .ROUTE .COMPLEX 04/02/23 04/02/23 - Allergies Allergies/Adverse Reactions: Allergies Allergy/AdvReac Type Severity Reaction Status Date / Time No Known Drug Allergies Allergy Verified 10/08/23 19:31 - Social History Does the pt smoke?: No Smoking Status: Never smoker Does the pt drink ETOH?: No Does the pt have substance abuse?: No - Immunizations Immunizations are current?: Yes - POLST Patient has POLST: No PD ED PE NORMAL - General General: Alert and oriented X 3, No acute distress, Well developed/nourished - Respiratory Respiratory: No respiratory distress - Extremities Extremities: Other (Mild 1+ pitting edema of the left lower leg. Tenderness medial knee, proximal tibia. Normal flexion extension. No laxity. Full range of motion of the ankle though tenderness is elicited on the dorsum. No posterior calf pain tenderness. Neurovascular intact. 2+ DP pulse) - Neuro Neuro: Alert and oriented X 3 Eye Opening: Spontaneous Motor: Obeys Commands Verbal: Oriented GCS Score: 15 Results - Vitals Vitals: Vital Signs - 24 hr 10/08/23 19:25 Temperature 36.1 C L Heart Rate 106 H Respiratory 16 Rate Blood Pressure 150/93 H O2 Saturation 97 Oxygen O2 Source Room air - Rads (name of study) left ankle Relevant Findings:: Final report received (No acute osseous abnormality. There is soft tissue swelling. If high clinical concern for further derangement consider MRI) left knee Relevant Findings:: Final report received (Degenerative changes. If high concern for further derangement consider MRI) left leg US dvt Relevant Findings:: Other (per US technologist: negative for DVT) PD Medical Decision Making - ED course Complexity details: reviewed results, re-evaluated patient, d/w patient ED course: There 63-year-old female presents emergency department for evaluation of left lower leg swelling and pain after she fell onto a ladder on . Reports initially having swelling and ecchymosis around the knee that resolved but over time she has had persistent swelling in the leg that resolves when she goes to bed at night. She is using a compressive bandage but the swelling gets worse during the day. X-ray of the knee and ankle were without acute findings suggest occult fracture. Her gait is normal. Her concern was the possibility of a deep vein thrombosis though I felt this was unlikely in the setting of trauma and ultrasound was completed which showed no evidence of DVT. Clinically I suspect that she has swelling as a result and side effect of the trauma. She is advised to continue elevation of the leg at night compressive stockings during the day and to follow closely with PCP for referral to physical therapy. The usual emergent return precautions were discussed for worsening symptoms. Departure - Departure Disposition: Home, Self Care Clinical Impression: Left leg swelling Condition: Stable Record reviewed to determine appropriate education?: Yes Comments: the xrays of your left knee, ankle did not show any broken bones. The ultrasound of your left leg also did not show any blood clots. You most likely have swelling associated with trauma. I would recommend wearing compressive stockings during the day and elevating your leg is much as possible at night. Some physical therapy can be very helpful in helping manage posttraumatic swelling so encourage you to discuss this ED visit with your primary care doctor and request a referral. Reasons to return to the emergency department would be the development of any fevers, milky drainage or concerns of infection in the leg, sudden severe chest pain or shortness of air. Forms: PCP List
--- NOTE | 2023-10-08 20:25 | XRAY Report ---
PROCEDURE: Ankle 3 View LT INDICATIONS: pain after ladder fell on it TECHNIQUE: 3 views of the ankle were acquired. COMPARISON: None. FINDINGS: Bones: Ankle mortise appears intact. There is no displaced fracture. Plantar enthesopathy. Soft tissues: There is diffuse soft tissue swelling. IMPRESSION: No acute osseous abnormality. There is soft tissue swelling. If there is high concern for further melinda angement, consider MRI evaluation. Reviewed by: Jose Richter MD on 10/08/2023 8:24 PM PST Approved by: Jose Richter MD on 10/08/2023 8:24 PM PST Station ID: [id number]
--- NOTE | 2023-10-08 20:26 | XRAY Report ---
PROCEDURE: Knee 3 View LT INDICATIONS: pain swelling after trauma TECHNIQUE: 3 views of the knee(s) were acquired. COMPARISON: None. FINDINGS: Bones: Moderate degenerative changes, particularly at the lateral compartment. No displaced fracture. No dislocation identified. Soft tissues: No significant knee joint effusion. There may be mild edema the prepatellar region and Hoffa's fat pad region. IMPRESSION: Degenerative changes. If there is high concern for further derangement, consider MRI evaluation. No a cute radiographic abnormality. Reviewed by: Jose Richter MD on 10/08/2023 8:25 PM PST Approved by: Jose Richter MD on 10/08/2023 8:25 PM PST Station ID: [id number]
--- NOTE | 2023-10-08 22:08 | Ultrasound Report ---
PROCEDURE: Duplex Ext Veins Left INDICATIONS: leftleg swellign after trauma; r/o dvt TECHNIQUE: Real-time imaging, as well as color and pulse Doppler interrogation, were performed of the lower extr emity deep veins from the inguinal ligament to the popliteal fossa. Attempted visualization of the ca lf veins was performed. COMPARISON: None. FINDINGS: The deep veins are normally compressible, and free of intraluminal thrombus. Color and pu lse Doppler demonstrate normal phasic intraluminal flow. There is normal augmentation response to di stal compression maneuver. Incidentally noted edema. In the anterior knee region, there is also focal fluid measuring 5.1 x 0.5 cm. IMPRESSION: No deep venous thrombosis of the visualized lower extremity. Reviewed by: Jose Richter MD on 10/08/2023 10:06 PM [facility] Approved by: Jose Richter MD on 10/08/2023 10:06 PM [facility] Station ID: [id number]
== END 2023-10-08 22:40 | disposition home or self-care (01) ==
LOC: ED 19:22
DX: M79.89 Other specified soft tissue disorders (principal); W19.XXXA Unspecified fall, initial encounter; Z79.899 Other long term (current) drug therapy
CPT/HCPCS: 99283; 99284

== ENCOUNTER 2024-06-17 11:29 | Outpatient (CLI) | payer MEDICAID ==
--- NOTE | 2024-06-19 09:11 | Mammography Report ---
BILATERAL DIGITAL SCREENING MAMMOGRAM 3D/2D: 06/17/2024 CLINICAL: Routine screening. Comparison is made to exams dated: 03/14/2023 mammogram, 11/22/2021 mammogram, and 11/28/2020 mammogram - [facility]. There are scattered areas of fibroglandular density in both breasts (category b / 25%-50% glandular t issue). No significant masses, calcifications, or other findings are seen in either breast. There has been no significant interval change. IMPRESSION: NEGATIVE There is no mammographic evidence of malignancy. A 1 year screening mammogram is recommended. Based on the Tyrer Cuzick model (a risk assessment model) the patient's lifetime risk is 5.8% and her 10 year risk is 2.7%. According to the ACR, ACS, and NCCN guidelines, an annual breast MRI exam vikki g with mammogram is recommended if the patient's lifetime risk is 20% or greater. This exam was interpreted at Station ID: [id number]. NOTE: For mammograms, a report in lay terms will be sent to the patient. Approximately 15% of breast malignancies will not be visualized mammographically. In the management of a palpable breast mass, a negative mammogram must not discourage biopsy of a clinically suspicious lesion. Electronically Signed By: French grace/tashi:06/18/2024 09:39:34 letter sent: No_Letter ACR BI-RADS Category 1: Negative [id number] PARENCHYMAL PATTERN: (A) - The breast(s) demonstrate(s) scattered fibroglandular densities. BI-RADS CATEGORY: (1) - 1 RECOMMENDATION: (ANNUAL) - Recommend routine annual screening mammography. [id number] 1 year screening LATERALITY: (B)
== END 2024-06-17 11:30 | disposition home or self-care (01) ==
LOC: DI.N 11:29
DX: Z12.31 Encounter for screening mammogram for malignant neoplasm of breast (principal); R92.323 Mammographic fibroglandular density, bilateral breasts

== ENCOUNTER 2024-07-21 07:41 | Outpatient (CLI) | payer MEDICAID ==
[2024-07-21 12:34] LABS: HCT - HEMATOCRIT 38.4 % (37.0-47.0); HGB - HEMOGLOBIN 12.6 g/dL (12.0-16.0); MEAN CORPUSCULAR HEMOGLOBIN 31.7 pg (27.0-31.0); MEAN CORPUSCULAR HGB CONC 32.8 g/dL (32.0-36.0); MEAN CORPUSCULAR VOLUME 96.7 fL (81.0-99.0); MEAN PLATELET VOLUME 9.4 fL (7.9-10.8); RED BLOOD COUNT 3.97 10^6/uL (4.20-5.40); RED CELL DISTRIBUTION WIDTH 13.2 % (12.0-15.0); WHITE BLOOD COUNT 6.2 x10^3/uL (4.8-10.8)
[2024-07-21 12:53] LABS: ESTIMATED AVERAGE GLUCOSE 120 mg/dL (70-100); HEMOGLOBIN A1c% 5.8 % (4.27-6.07)
[2024-07-21 12:57] LABS: ALBUMIN 4.1 g/dL (3.2-5.5); ALBUMIN/GLOBULIN RATIO 1.4 (1.0-2.2); ALKALINE PHOSPHATASE 94 IU/L (42-121); ALT ALANINE AMINOTRANSFERASE 13 IU/L (10-60); AST ASPARTATE AMINOTRANSFERASE 15 IU/L (10-42); BILIRUBIN,TOTAL 0.5 mg/dL (0.2-1.0); BUN - BLOOD UREA NITROGEN 14 mg/dL (6-20); CALCIUM 9.3 mg/dL (8.5-10.3); CARBON DIOXIDE - CO2 28 mmol/L (21-32); CHLORIDE 103 mmol/L (101-111); CHOL/HDL RATIO 3.7 (<4.4); CHOLESTEROL 261 mg/dL; CREATININE 0.8 mg/dL (0.6-1.3); CRP HIGH SENSITIVITY 11.93 mg/L; GFR - MDRD 72 (>89); GLUCOSE 122 mg/dL (74-104); HDL CHOLESTEROL 70 mg/dL; LDL CHOLESTEROL,CALCULATED 159 mg/dL; LDL/HDL RATIO 2.3 (<4.4); SODIUM 137 mmol/L (135-145); TRIGLYCERIDES 162 mg/dL; VLDL CHOLESTEROL 32 mg/dL
[2024-07-21 13:04] LABS: THYROID STIMULATING HORMONE 3.22 uIU/mL (0.34-5.60)
== END 2024-07-21 07:42 | disposition home or self-care (01) ==
LOC: LAB.N 07:41
PROVIDERS: ATTEND Obstetrics & Gynecology
DX: R73.03 Prediabetes (principal); Z13.220 Encounter for screening for lipoid disorders; Z13.0 Encounter for screening for diseases of the blood and blood-forming organs and certain disorders involving the immune mechanism; Z13.29 Encounter for screening for other suspected endocrine disorder
CPT/HCPCS: 36415; 80053; 80061; 83036; 83525; 83721; 84443; 85027; 86141

== ENCOUNTER 2024-07-21 19:31 | Outpatient (CLI) | payer MEDICAID ==
--- NOTE | 2024-07-22 09:04 | Ultrasound Report ---
PROCEDURE: Carotid Doppler Complete INDICATIONS: POST MENOPAUSAL STATE TECHNIQUE: Color and pulse Doppler interrogation was performed of both carotid systems, with image documentation and velocity measurements. COMPARISON: None. FINDINGS: Right side: Brachial blood pressure: 138/68 mm Hg. Common carotid artery peak systolic velocity: 103 cm/sec. Internal carotid artery peak systolic velocity: 70 cm/sec. Internal carotid artery end diastolic velocity: 21 cm/sec. External carotid artery peak systolic velocity: 95 cm/sec. ICA/CCA peak systolic ratio: 0.7 . Foster scale imaging description: Mild degree of atherosclerotic plaque involving the carotid bulb and origins of ICA and ECA. Percent internal carotid artery stenosis: <50%. Vertebral artery: Flow direction is antegrade. Left side: Brachial blood pressure: 130/72 mm Hg. Common carotid artery peak systolic velocity: 114 cm/sec. Internal carotid artery peak systolic velocity: 88 cm/sec. Internal carotid artery end diastolic velocity: 28 cm/sec. External carotid artery peak systolic velocity: 114 cm/sec. ICA/CCA peak systolic ratio: 0.8 . Foster scale imaging description: Mild degree of atherosclerotic plaque involving the carotid bulb and origins of the ICA and ECA Percent internal carotid artery stenosis: <50%. Vertebral artery: Flow direction is antegrade. IMPRESSION: <50% stenosis involving bilateral internal carotid arteries. The estimate of stenosis included in the report of the imaging study was calculated using the [facility]-end orsed standards of carotid artery stenosis. Reviewed by: Alex Tafoya MD on 07/22/2024 9:03 AM PDT Approved by: Alex Tafoya MD on 07/22/2024 9:03 AM PDT Station ID: [id number]
== END 2024-07-21 19:32 | disposition home or self-care (01) ==
LOC: DI 19:31
PROVIDERS: ATTEND Obstetrics & Gynecology
DX: I65.23 Occlusion and stenosis of bilateral carotid arteries (principal); R73.03 Prediabetes; Z13.220 Encounter for screening for lipoid disorders; Z13.0 Encounter for screening for diseases of the blood and blood-forming organs and certain disorders involving the immune mechanism; Z13.29 Encounter for screening for other suspected endocrine disorder
CPT/HCPCS: 36415; 80053; 80061; 83036; 83525; 83721; 84443; 85027; 86141; 93880